=== PATIENT | female | born 1985 ===

== ENCOUNTER 2021-12-15 08:27 | Outpatient (CLI) | payer OTHER | END 2021-12-15 08:47 | disposition home or self-care (01) | LOC: RX STUDY 08:27 | PROVIDERS: ATTEND Obstetrics & Gynecology Reproductive Endocrinology | DX: N93.0 Postcoital and contact bleeding (principal) ==

== ENCOUNTER 2022-05-21 08:50 | Outpatient (CLI) | payer OTHER | END 2022-05-21 10:41 | disposition home or self-care (01) | LOC: PRENATAL 08:50 | PROVIDERS: ATTEND Obstetrics & Gynecology Maternal & Fetal Medicine | DX: O36.80X0 Pregnancy with inconclusive fetal viability, not applicable or unspecified (principal); O09.519 Supervision of elderly primigravida, unspecified trimester; O09.819 Supervision of pregnancy resulting from assisted reproductive technology, unspecified trimester; O99.280 Endocrine, nutritional and metabolic diseases complicating pregnancy, unspecified trimester; Z14.8 Genetic carrier of other disease; Z3A.13 13 weeks gestation of pregnancy ==

== ENCOUNTER 2022-07-07 12:54 | Outpatient (CLI) | payer OTHER | END 2022-07-07 14:25 | disposition home or self-care (01) | LOC: PRENATAL 12:54 | PROVIDERS: ATTEND Obstetrics & Gynecology Maternal & Fetal Medicine | DX: O35.9XX0 Maternal care for (suspected) fetal abnormality and damage, unspecified, not applicable or unspecified (principal); O09.819 Supervision of pregnancy resulting from assisted reproductive technology, unspecified trimester; O09.519 Supervision of elderly primigravida, unspecified trimester; Z3A.20 20 weeks gestation of pregnancy ==

== ENCOUNTER 2022-09-29 13:59 | Outpatient (CLI) | payer OTHER | END 2022-09-29 15:30 | disposition home or self-care (01) | LOC: PRENATAL 13:59 | PROVIDERS: ATTEND Obstetrics & Gynecology Maternal & Fetal Medicine | DX: O26.849 Uterine size-date discrepancy, unspecified trimester (principal); O09.519 Supervision of elderly primigravida, unspecified trimester; O99.280 Endocrine, nutritional and metabolic diseases complicating pregnancy, unspecified trimester; O09.819 Supervision of pregnancy resulting from assisted reproductive technology, unspecified trimester; Z14.8 Genetic carrier of other disease; Z3A.32 32 weeks gestation of pregnancy ==

== ENCOUNTER 2022-11-01 14:56 | Outpatient (CLI) | payer OTHER ==
[2022-11-01] MEDS ORDERED: SYNTHROID150 MCG PO (19:03)
[2022-11-01] MEDS ORDERED: PRENATAL TABLE1 EAC1 PO (19:04)
[2022-11-01] MEDS ORDERED: PROAIR RESPICL90 MCG IH (19:04)
== END 2022-11-01 16:55 | disposition home or self-care (01) ==
LOC: PRENATAL 14:56
PROVIDERS: ATTEND Obstetrics & Gynecology Maternal & Fetal Medicine
DX: O26.849 Uterine size-date discrepancy, unspecified trimester (principal); O09.519 Supervision of elderly primigravida, unspecified trimester; O09.819 Supervision of pregnancy resulting from assisted reproductive technology, unspecified trimester; O99.280 Endocrine, nutritional and metabolic diseases complicating pregnancy, unspecified trimester; Z14.8 Genetic carrier of other disease; Z3A.33 33 weeks gestation of pregnancy

== ENCOUNTER 2022-11-01 17:52 | Inpatient (IN) | payer OTHER ==
[~2022-11-01] VITALS: Ht 152.4 cm; Wt 2.3 kg
[2022-11-01] MEDS ORDERED: SYNTHROID150 MCG PO (19:03)
[2022-11-01] MEDS ORDERED: PROAIR RESPICL90 MCG IH (19:04)
[2022-11-01] MEDS ORDERED: PRENATAL TABLE1 EAC1 PO (19:04)
[2022-11-06] MEDS ORDERED: IBUPROFEN800 MG PO (08:34)
== END 2022-11-06 13:01 | disposition home or self-care (01) | DRG 787 ==
LOC: OB/GYN 17:52 → LDR 17:52 → O/R 11-03 18:53 → OB/GYN 11-03 20:13
PROVIDERS: ADMIT Obstetrics & Gynecology; ATTEND Obstetrics & Gynecology
PROC: 4A1HXCZ Monitoring of Products of Conception, Cardiac Rate, External Approach (ICD-10-PCS; 2022-11-01)
PROC: 10D00Z1 Extraction of Products of Conception, Low, Open Approach (ICD-10-PCS; principal; 2022-11-03 20:00)
DX: O36.5930 Maternal care for other known or suspected poor fetal growth, third trimester, not applicable or unspecified (principal); O41.03X0 Oligohydramnios, third trimester, not applicable or unspecified; O62.0 Primary inadequate contractions; Z37.0 Single live birth; Z3A.36 36 weeks gestation of pregnancy; Z20.822 Contact with and (suspected) exposure to COVID-19